=== PATIENT | female | born 1990 | race Caucasian/White ===

== ENCOUNTER → 2018-02-05 | Outpatient (CLI) | payer MEDICAID ==
[~2018-02-05] MED LIST: IBUP-1222 PO; OXYC-302 PO
== END | disposition home or self-care (01) ==
LOC: RAD 15:59
PROVIDERS: ATTEND Family Medicine
DX: R11.0 Nausea (principal); R53.83 Other fatigue; R10.9 Unspecified abdominal pain; M54.9 Dorsalgia, unspecified
CPT/HCPCS: 74176

== ENCOUNTER 2021-01-02 08:17 | Emergency (ER) | payer BC, MEDICAID ==
[~2021-01-02] VITALS: Ht 154.9 cm; Wt 48.1 kg
[~2021-01-02 08:17] MED LIST changes: -OXYC-302 PO; +OXYC1TAB14 PO
--- NOTE | 2021-01-02 08:31 | NUR ---
pt ambulatory to room from triage. Pt given urine sample cup, ambulatory to Br with upright steady gait.
[2021-01-02] MEDS ORDERED: ONDANSETRON 2MG/ML, 2ML ONE (08:51)
[2021-01-02] MEDS ORDERED: MORPHINE SULFATE 4 MG/ML, 1ML ONE (08:51)
[2021-01-02] MEDS ORDERED: ONDANSETRON 2MG/ML, 2ML IVPush ONE (09:00)
[2021-01-02] MEDS ORDERED: SODIUM CHLORIDE 0.9% 1,000ML IVBOLUS ONE (09:00)
[2021-01-02] MEDS ORDERED: MORPHINE SULFATE 4 MG/ML, 1ML IVPush PRN (09:00)
[2021-01-02] MEDS ORDERED: SODIUM CHLORIDE FLUSH 10ML SYR IVF ONE (09:00)
--- NOTE | 2021-01-02 09:00 | NUR ---
BREAK RN: PT UPRIGHT ON GURNEY AWAKE & MORE COMFORTABLE AFTER PAIN/NAUSEA MEDS, NAD, NO NEEDS AT THIS TIME, CALL LIGHT WITHIN REACH.
[2021-01-02 09:02] VITALS: BP 128/81
[2021-01-02 09:09] LABS: MICROSCOPIC INDICATED
[2021-01-02 09:13] LABS: BASOPHILS % (AUTO) 0 % (0-1); EOSINOPHILS % (AUTO) 0 % (1-7); LYMPHOCYTES % (AUTO) 14 % (22-44); MEAN PLATELET VOLUME 8.3 fL (7.4-10.4); MONOCYTES % (AUTO) 6 % (2-9); NEUTROPHILS % (AUTO) 80 % (42-75); PLATELET COUNT 183 x10^3/uL (130-400); RED BLOOD COUNT 4.69 x10^6/uL (3.82-5.3); RED CELL DISTRIBUTION WIDTH 12.9 % (9.6-15.2)
[2021-01-02 09:17] LABS: MD NO
[2021-01-02 09:22] LABS: ALBUMIN 3.8 g/dL (3.4-5.0); ANION GAP 6 mmol/L (5-15); CALCIUM 8.6 mg/dL (8.5-10.1); CHLORIDE 107 mmol/L (98-107)
[2021-01-02 09:31] LABS: ALANINE AMINOTRANSFERASE 17 U/L (12-78); ALKALINE PHOSPHATASE 82 U/L (45-117); BILIRUBIN,TOTAL 0.8 mg/dL (0.2-1.0); CREATININE 0.82 mg/dL (0.55-1.02); TOTAL PROTEIN 7.4 g/dL (6.4-8.2)
[2021-01-02] MEDS ORDERED: CEFTRIAXONE 1,000 MG ONE (09:47)
[2021-01-02] MEDS ORDERED: CEFTRIAXONE 1,000 MG IM ONE (10:00)
== END 2021-01-02 10:02 | disposition home or self-care (01) ==
LOC: ED 09:02
DX: N30.01 Acute cystitis with hematuria (principal); N10 Acute pyelonephritis; R30.0 Dysuria; R11.2 Nausea with vomiting, unspecified
CPT/HCPCS: 36415; 80053; 81001; 84703; 85025; 87077; 87086; 96361; 96372; 96374; 96375; 99284; J0696; J2270; J2405; J7030; 87186

== ENCOUNTER 2021-01-24 20:00 | Emergency (ER) | payer MEDICAID ==
[~2021-01-24] VITALS: Ht 154.9 cm; Wt 48.2 kg
[2021-01-24 21:26] LABS: BASOPHILS % (AUTO) 1 % (0-1); EOSINOPHILS % (AUTO) 1 % (1-7); LYMPHOCYTES % (AUTO) 34 % (22-44); MEAN CORPUSCULAR HEMOGLOBIN 32.9 pg (27.0-34.8); MEAN CORPUSCULAR HGB CONC 34.3 g/dL (32.4-35.8); MEAN PLATELET VOLUME 8.2 fL (7.4-10.4); MONOCYTES % (AUTO) 8 % (2-9); NEUTROPHILS % (AUTO) 57 % (42-75); PLATELET COUNT 189 x10^3/uL (130-400); RED BLOOD COUNT 4.28 x10^6/uL (3.82-5.3); RED CELL DISTRIBUTION WIDTH 13.6 % (9.6-15.2)
[2021-01-24 21:31] LABS: ALANINE AMINOTRANSFERASE 22 U/L (12-78); ALBUMIN 3.5 g/dL (3.4-5.0); ANION GAP 9 mmol/L (5-15); CALCIUM 8.4 mg/dL (8.5-10.1); CHLORIDE 107 mmol/L (98-107); CREATININE 0.78 mg/dL (0.55-1.02)
[2021-01-24 21:35] LABS: ALKALINE PHOSPHATASE 66 U/L (45-117); BILIRUBIN,TOTAL 0.6 mg/dL (0.2-1.0); TOTAL PROTEIN 7.2 g/dL (6.4-8.2)
--- NOTE | 2021-01-24 21:38 | NUR ---
ASSUMED CARE OF PATIENT. PATIENT C/O RIGHT FLANK PAIN WITH NAUSEA. VS STABLE. NO ACUTE DISTRESS NOTED. UA SENT. DR IGLESIAS HAS SEEN PATIENT. WILL CONTINUE TO MONITOR.
[2021-01-24 21:43] LABS: MICROSCOPIC INDICATED
--- NOTE | 2021-01-24 22:11 | NUR ---
PT REPORTS 8/10 FLANK PAIN. PT REQUESTING PAIN MEDS. DR IGLESIAS AWARE.
--- NOTE | 2021-01-24 22:37 | NUR ---
DR IGLESIAS HAS UPDATED PATIENT
[2021-01-24] MEDS ORDERED: KETOROLAC 60 MG/2 ML ONE (22:40)
[2021-01-24] MEDS ORDERED: KETOROLAC 30 MG/1 ML IM ONE (23:00)
== END 2021-01-24 23:13 | disposition home or self-care (01) ==
LOC: ED 21:23
DX: N30.20 Other chronic cystitis without hematuria (principal); R10.2 Pelvic and perineal pain; F17.200 Nicotine dependence, unspecified, uncomplicated
CPT/HCPCS: 36415; 76770; 80053; 81001; 84703; 85025; 96372; 99284; J1885

== ENCOUNTER → 2021-02-28 | Outpatient (CLI) | payer MEDICAID | END | disposition home or self-care (01) | LOC: CFH 10:04 | PROVIDERS: ATTEND Obstetrics & Gynecology | DX: N20.0 Calculus of kidney (principal); R31.9 Hematuria, unspecified | CPT/HCPCS: 74176 ==

== ENCOUNTER 2021-03-01 21:07 | Emergency (ER) | payer MEDICAID ==
[~2021-03-01] VITALS: Ht 154.9 cm; Wt 48.5 kg
[2021-03-01 22:22] LABS: BASOPHILS % (AUTO) 1 % (0-1); EOSINOPHILS % (AUTO) 2 % (1-7); LYMPHOCYTES % (AUTO) 45 % (22-44); MEAN CORPUSCULAR HEMOGLOBIN 32.4 pg (27.0-34.8); MEAN CORPUSCULAR HGB CONC 33.8 g/dL (32.4-35.8); MEAN PLATELET VOLUME 8.1 fL (7.4-10.4); MONOCYTES % (AUTO) 8 % (2-9); NEUTROPHILS % (AUTO) 43 % (42-75); PLATELET COUNT 197 x10^3/uL (130-400); RED BLOOD COUNT 4.34 x10^6/uL (3.82-5.3); RED CELL DISTRIBUTION WIDTH 13.2 % (9.6-15.2)
[2021-03-01 22:34] LABS: ALBUMIN 3.4 g/dL (3.4-5.0); ANION GAP 5 mmol/L (5-15); CALCIUM 8.7 mg/dL (8.5-10.1); CHLORIDE 105 mmol/L (98-107); CREATININE 0.84 mg/dL (0.55-1.02)
[2021-03-02 01:00] VITALS: BP 130/85
[2021-03-02 01:14] LABS: MICROSCOPIC AUTO
== END 2021-03-02 01:49 | disposition home or self-care (01) ==
LOC: ED 23:00
DX: G89.29 Other chronic pain (principal); R10.32 Left lower quadrant pain; R10.12 Left upper quadrant pain; R11.2 Nausea with vomiting, unspecified; R19.7 Diarrhea, unspecified; F17.200 Nicotine dependence, unspecified, uncomplicated
CPT/HCPCS: 36415; 80048; 81001; 82040; 84703; 85025; 87086; 99283